=== PATIENT | female | born 1980 | race Two or more races ===

== ENCOUNTER 2024-04-03 18:22 | Emergency (ER) | payer OTHER ==
[~2024-04-03] VITALS: Ht 162.6 cm; Wt 81.6 kg
[2024-04-03] MEDS ORDERED: ACETAMINOPHEN 500 MG TABLET ONE (20:56)
[2024-04-03] MEDS ORDERED: NAPROXEN 500 MG TABLET ONE (20:56)
[2024-04-03] MEDS: ACETAMINOPHEN 500 MG TABLET PO ONE (20:58)
[2024-04-03] MEDS: NAPROXEN 500 MG TABLET PO ONE (20:58)
[2024-04-03 21:01] LABS: *BILIRUBIN,URIN NEGATIVE (NEGATIVE); *BLOOD, URINE NEGATIVE (NEGATIVE); *CLARITY,URINE CLEAR (CLEAR); *COLOR,URINE YELLOW (YELLOW); *KETONES,URINE NEGATIVE (NEGATIVE); *PROTEIN,URINE 1+ (NEGATIVE); *UROBILINOGEN,URINE 0.2 E.U./dl (NORMAL); LEUKOCYTE ESTERASE ,URINE 1+ (NEGATIVE); NITRITE, URINE NEGATIVE (NEGATIVE); UGLUCOSE NEGATIVE (NEGATIVE)
[2024-04-03 21:02] LABS: *URINE HCG, QUAL NEGATIVE (NEGATIVE)
[2024-04-03 21:25] LABS: BACTERIA,URINE FEW /HPF (NONE SEEN); SQUAMOUS EPITHELIAL CELL,UR FEW /HPF (NONE SEEN); WBC,URINE 80-100 /HPF (0-3)
[2024-04-03] MEDS ORDERED: PHENAZOPYRIDINE HCL 100 MG TABLET ONE (22:29)
[2024-04-03] MEDS ORDERED: KETOROLAC TROMETHAMINE 15 MG INJ ONE (22:29)
[2024-04-03] MEDS: KETOROLAC TROMETHAMINE 15 MG INJ IM ONE (22:30)
[2024-04-03] MEDS: PHENAZOPYRIDINE HCL 100 MG TABLET PO ONE (22:30)
[2024-04-03] MEDS ORDERED: PHEN-704 PO (22:51)
[2024-04-03] MEDS ORDERED: CEPH500C2 PO (22:51)
[2024-04-03] MEDS ORDERED: NAPR-1009 PO (22:52)
[2024-04-03] MEDS ORDERED: ACET-3102 PO (22:52)
[2024-04-03] MEDS: CEphaleXIN 500 MG CAPSULE PO ONE (23:00)
[2024-04-03 23:05] VITALS: BP 138/88; TEMP 98; O2SAT 100
== END 2024-04-03 22:00 | disposition home or self-care (01) ==
LOC: ER 18:22
DX: N39.0 Urinary tract infection, site not specified (principal); R10.9 Unspecified abdominal pain
CPT/HCPCS: 99284; 81001; 84703; 87210; 96372; J1885; 87086; A4606; A4663; A9150

== ENCOUNTER 2024-08-10 12:52 | Emergency (ER) | payer OTHER ==
[~2024-08-10] VITALS: Ht 162.6 cm; Wt 81.6 kg
[~2024-08-10 12:52] MED LIST: ACET-3102 PO; CEPH500C2 PO; NAPR-1009 PO; PHEN-704 PO
[2024-08-10] MEDS ORDERED: CETI10CA PO (13:06)
[2024-08-10] MEDS ORDERED: PANT40TA49 PO (13:06)
[2024-08-10] MEDS ORDERED: HYDROMORPHONE 1 MG/1 ML DISP.SYRIN ONE (13:17)
[2024-08-10] MEDS ORDERED: METOCLOPRAMIDE HCL 10 MG/2 ML VIAL ONE (13:17)
[2024-08-10] MEDS ORDERED: diphenhydrAMINE 50 MG/1 ML VIAL ONE (13:17)
[2024-08-10] MEDS: IV NORMAL SALINE 1000 ML BAG IV ONE (13:26)
[2024-08-10] MEDS: diphenhydrAMINE 50 MG/1 ML VIAL IV ONE (13:26)
[2024-08-10] MEDS: HYDROMORPHONE 1 MG/1 ML DISP.SYRIN IV ONE (13:26)
[2024-08-10] MEDS: METOCLOPRAMIDE HCL 10 MG/2 ML VIAL IV ONE (13:26)
[2024-08-10 13:31] LABS: BASOPHILS % (AUTO) 0.5 % (0.0-2.0); DIFFERENTIAL COMMENT 0; EOSINOPHILS # (AUTO) 0.1 K/uL (0.0-0.7); EOSINOPHILS % (AUTO) 1.1 % (0.0-7.0); HEMATOCRIT 42.5 % (31.2-41.9); HEMOGLOBIN 14.6 g/dL (10.9-14.3); LYMPHOCYTES # (AUTO) 1.6 K/uL (0.8-4.8); LYMPHOCYTES % (AUTO) 20.7 % (20.5-51.5); MEAN CORPUSCULAR HEMOGLOBIN 31.5 uug (24.7-32.8); MEAN CORPUSCULAR HGB CONC 34 g/dL (32.3-35.6); MEAN CORPUSCULAR VOLUME 91.3 fL (75.5-95.3); MONOCYTES # (AUTO) 0.5 K/uL (0.1-1.30); MONOCYTES % (AUTO) 6.3 % (0.0-11.0); NEUTROPHILS # (AUTO) 5.4 K/uL (1.8-8.9); NEUTROPHILS % (AUTO) 71.4 % (38.5-71.5); PLATELET COUNT (AUTO) 238 K/uL (179-408); RED BLOOD CELL COUNT(AUTO) 4.65 MIL/uL (3.63-4.92); RED CELL DISTRIBUTION WIDTH 13.1 % (12.3-17.7); WHITE BLOOD COUNT (AUTO) 7.5 K/uL (3.8-11.8)
[2024-08-10 13:37] LABS: CALCIUM 9.1 mg/dL (8.5-10.1); CARBON DIOXIDE 23 mmol/L (21-32); CHLORIDE 104 mmol/L (98-107); CREATININE 0.7 mg/dL (0.6-1.3); GLUCOSE 84 mg/dL (74-106); POTASSIUM 3.9 mmol/L (3.5-5.1); SODIUM SERUM 141 mmol/L (136-145); UREA NITROGEN, BLOOD 10 mg/dL (7-18)
[2024-08-10 13:56] LABS: ALANINE AMINOTRANSFERASE 89 U/L (14-59); ALBUMIN 3.8 g/dL (3.4-5.0); ALKALINE PHOSPHATASE 64 U/L (50-136); ASPARTATE AMINOTRANSFERASE 39 U/L (15-37); BILIRUBIN,DIRECT 0.2 mg/dL (0.0-0.2); BILIRUBIN,TOTAL 0.4 mg/dL (0.2-1.0); TOTAL PROTEIN, SERUM 7.5 g/dL (6.4-8.2)
[2024-08-10] MEDS ORDERED: IOHEXOL 300MG/ML 100 ML INFUS..BTL ONE (14:04)
[2024-08-10] MEDS ORDERED: IV NORMAL SALINE 250 ML IV ONE (14:04)
[2024-08-10] MEDS ORDERED: SWABABLE VALVE TRANSFER SET EA MC ONE (14:04)
[2024-08-10 14:26] LABS: PREGNANCY TEST SERUM QUAN < 1 miul/L (0-6)
[2024-08-10 14:27] LABS: LIPASE 61 U/L (16-77)
[2024-08-10] MEDS ORDERED: HYDR25CA PO (15:28)
[2024-08-10] MEDS ORDERED: HYDR-3980 PO (15:28)
[2024-08-10] MEDS ORDERED: METO-295 PO (15:28)
[2024-08-10 15:46] VITALS: BP 120/76; O2SAT 96
== END 2024-08-10 15:47 | disposition home or self-care (01) ==
LOC: ER 12:52
DX: R10.13 Epigastric pain (principal); R11.2 Nausea with vomiting, unspecified; R10.2 Pelvic and perineal pain; Z79.899 Other long term (current) drug therapy; Z85.028 Personal history of other malignant neoplasm of stomach; Z92.21 Personal history of antineoplastic chemotherapy; Z92.3 Personal history of irradiation
CPT/HCPCS: 99285; 74177; 96374; 96361; 96375; 71045; 80076; 80048; 83690; 85025; 85730; 87040 ×2; 84484; 84702; 93005; 83605; J1200; J2765; Q9967; J1171; J7040; A4606; A4663

== ENCOUNTER 2024-11-15 20:38 | Emergency (ER) | payer OTHER ==
[~2024-11-15] VITALS: Ht 162.6 cm; Wt 81.6 kg
[~2024-11-15 20:38] MED LIST changes: +CETI10CA PO; +HYDR-3980 PO; +HYDR25CA PO; +METO-295 PO; +PANT40TA49 PO
[2024-11-15 20:40] VITALS: BP 139/74
[2024-11-15] MEDS ORDERED: CYCLOBENZAPRINE HCL 10 MG TABLET ONE ×2 (20:59→22:38)
[2024-11-15] MEDS ORDERED: KETOROLAC TROMETHAMINE 15 MG INJ ONE (20:59)
[2024-11-15] MEDS ORDERED: HYDROCODONE/APAP 5-325MG TABLET ONE (20:59)
[2024-11-15] MEDS: KETOROLAC TROMETHAMINE 15 MG INJ IM ONE (21:03)
[2024-11-15] MEDS: CYCLOBENZAPRINE HCL 10 MG TABLET PO ONE ×2 (21:03→22:56)
[2024-11-15] MEDS: HYDROCODONE/APAP 5-325MG TABLET PO ONE (21:03)
[2024-11-15] MEDS ORDERED: ONDANSETRON 4 MG/2 ML VIAL ONE (21:09)
[2024-11-15] MEDS ORDERED: MORPHINE SULFATE 4 MG/1 ML DISP.SYRIN ONE ×2 (21:09→22:38)
[2024-11-15 21:24] LABS: *BILIRUBIN,URIN NEGATIVE (NEGATIVE); *CLARITY,URINE CLEAR (CLEAR); *COLOR,URINE LIGHT YELLOW (YELLOW); *KETONES,URINE NEGATIVE (NEGATIVE); *PROTEIN,URINE NEGATIVE (NEGATIVE); *UROBILINOGEN,URINE 0.2 E.U./dl (NORMAL); LEUKOCYTE ESTERASE ,URINE TRACE (NEGATIVE); NITRITE, URINE NEGATIVE (NEGATIVE); UGLUCOSE NEGATIVE (NEGATIVE)
[2024-11-15] MEDS: MORPHINE SULFATE 4 MG/1 ML DISP.SYRIN IV ONE ×2 (21:33→22:41)
[2024-11-15] MEDS: ONDANSETRON 4 MG/2 ML VIAL IV ONE (21:33)
[2024-11-15] MEDS: KETOROLAC TROMETHAMINE 15 MG INJ IVP ONE (21:33)
[2024-11-15 21:39] LABS: *BLOOD, URINE TRACE (NEGATIVE)
[2024-11-15 21:43] LABS: *URINE HCG, QUAL NEGATIVE (NEGATIVE)
[2024-11-15 21:49] LABS: SQUAMOUS EPITHELIAL CELL,UR FEW /HPF (NONE SEEN)
[2024-11-15] MEDS ORDERED: KETO10TA2 PO (22:51)
[2024-11-15] MEDS ORDERED: CYCL10TA9 PO (22:51)
[2024-11-15] MEDS ORDERED: ACET-73 PO (22:51)
[2024-11-15] MEDS ORDERED: NITR100C11 PO (22:52)
[2024-11-15 23:15] VITALS: BP 129/72; O2SAT 99
== END 2024-11-15 23:14 | disposition home or self-care (01) ==
LOC: ER 20:46
DX: M54.42 Lumbago with sciatica, left side (principal); Z79.899 Other long term (current) drug therapy; Z85.028 Personal history of other malignant neoplasm of stomach; Z87.39 Personal history of other diseases of the musculoskeletal system and connective tissue
CPT/HCPCS: 99284; 96374; 96375; 81001; 84703; J1885; J2405; J2270 ×2; A4606; A4663